=== PATIENT | male | born 1975 | race Caucasian/White ===

== ENCOUNTER 2021-01-24 22:37 | Inpatient (IN) | payer OTHER ==
[~2021-01-24] VITALS: Ht 188 cm; Wt 140.9 kg
[~2021-01-24 22:37] MED LIST: CIPRO500 MG PO; FLAGYL500 MG PO; NORCO 7.5-3251 EACH GT; ZOFRAN4 MG PO; ZYRTEC10 MG PO
[2021-01-24 23:12] LABS: BASOPHILS 0.2 % (0-2); EOSINOPHILS 1.2 % (0-7); HEMATOCRIT 45.9 % (42.0-54.0); HEMOGLOBIN 15.5 g/dL (13.5-17.5); IMMATURE GRANULOCYTES 0.3 % (0-5); LYMPHOCYTE ABS# 3.47 10x3/uL (1.32-3.57); LYMPHOCYTES 24.2 % (15-50); MCH 28.8 pg (26.0-34.0); MCHC 33.8 g/dL (31.0-37.0); MCV 85.3 fL (80.0-100.0); MEAN PLATELET VOLUME 10.7 fL (7.4-10.4); MONOCYTES 9.6 % (2-11); NEUTROPHIL ABS# 9.26 10x3/uL (1.78-5.38); NEUTROPHILS 64.5 % (40-80); PLATELET COUNT 300 10x3/uL (130-400); RBC 5.38 10x6/uL (4.20-6.10); RDW 12.6 % (11.5-14.5); WBC 14.4 10x3/uL (4.8-10.8)
[2021-01-24 23:22] LABS: CALC OSMOLALITY 284 mosm/kg (275-300); CALCIUM 8.7 mg/dL (8.5-10.1); CHLORIDE - SERUM 105 mmol/L (98-107); POTASSIUM - SERUM 3.8 mmol/L (3.5-5.1); SODIUM 141 mmol/L (136-145); UREA NITROGEN 15 mg/dL (7-18); eGFR NON AFRICAN AMERICAN 85 mL/min (90-120)
[2021-01-24 23:27] LABS: GLUCOSE 147 mg/dL (74-106)
[2021-01-24 23:28] LABS: ALBUMIN 3.5 g/dL (3.4-5.0); ALKALINE PHOSPHATASE 95 U/L (30-120); ALT (SGPT) 26 U/L (10-68); BILIRUBIN - TOTAL 0.61 mg/dL (0.2-1.3); PROTEIN - SERUM 7.3 g/dL (6.4-8.2)
--- NOTE | 2021-01-24 23:50 | NUR ---
PT LEFT ED VIA STRETCHER FOR CT.
[2021-01-25] VITALS (7 sets, daily range): BP systolic 111–134; BP diastolic 65–86; Ht 188 cm; Wt 140.9 kg
--- NOTE | 2021-01-25 09:07 | NUR ---
PT REQUEST 2MG OF MORPHINE
--- NOTE | 2021-01-25 11:35 | NUR ---
RESTING IN BED, NO DISTRESS NOTED, USING URINAL, IV PER LFA, NO REDDNESS AT SITE
--- NOTE | 2021-01-26 01:30 | NUR ---
A&O X 4. IV TO LEFT WRIST INFILTRATED. DCd WITH CATH INTACT. 20G SITED TO LEFT FOREARM, 1ST ATTEMPT, PATENT. TOLERATED WELL. DENIES PAIN/NAUSEA. CPOC.
--- NOTE | 2021-01-26 03:55 | NUR ---
I have reviewed this patient and I concur with the Shift Assessment completed by the Licensed Practical Nurse today this shift.
[2021-01-26 05:54] VITALS: BP 117/76
[2021-01-26 06:20] LABS: BASOPHILS 0.2 % (0-2); EOSINOPHILS 2.7 % (0-7); HEMATOCRIT 42.9 % (42.0-54.0); HEMOGLOBIN 14.4 g/dL (13.5-17.5); IMMATURE GRANULOCYTES 0.3 % (0-5); LYMPHOCYTE ABS# 3.06 10x3/uL (1.32-3.57); MCH 28.6 pg (26.0-34.0); MCHC 33.6 g/dL (31.0-37.0); MCV 85.3 fL (80.0-100.0); MEAN PLATELET VOLUME 10.9 fL (7.4-10.4); MONOCYTES 8.5 % (2-11); NEUTROPHILS 60.3 % (40-80); PLATELET COUNT 300 10x3/uL (130-400); RBC 5.03 10x6/uL (4.20-6.10); RDW 12.6 % (11.5-14.5); WBC 10.9 10x3/uL (4.8-10.8)
[2021-01-26 06:25] LABS: CALC OSMOLALITY 277 mosm/kg (275-300); CALCIUM 8.9 mg/dL (8.5-10.1); CARBON DIOXIDE 26.6 mmol/L (21.0-32.0); CHLORIDE - SERUM 103 mmol/L (98-107); CREATININE - SERUM 0.8 mg/dL (0.6-1.3); GLUCOSE 114 mg/dL (74-106); SODIUM 139 mmol/L (136-145); eGFR NON AFRICAN AMERICAN > 90 mL/min (90-120)
[2021-01-26 06:26] LABS: UREA NITROGEN 11 mg/dL (7-18)
--- NOTE | 2021-01-26 07:43 | NUR ---
resting in bed, no distress noted, sl in place, cont to monitor pain
[2021-01-26 09:42] VITALS: BP 120/78
[2021-01-26] MEDS ORDERED: FLAGYL500 MG PO (10:03)
[2021-01-26] MEDS ORDERED: CIPRO500 MG PO (10:03)
--- NOTE | 2021-01-26 10:50 | NUR ---
OFFERED PT REFERRAL TO TOBACCO QUITLINE. DECLINED.
--- NOTE | 2021-01-26 11:03 | NUR ---
IV REMOVED, TIP INTACT, REVIEWED DC ORDERS WITH PT, VOICED NO CONCERNS, WALKED FROM UNIT
== END 2021-01-26 11:05 | disposition home or self-care (01) | DRG 392 ==
LOC: D.ER 22:37 → D.MS 01-25 00:55
PROVIDERS: Emergency Medicine; ADMIT Family Medicine; ATTEND Family Medicine
DX: K57.92 Diverticulitis of intestine, part unspecified, without perforation or abscess without bleeding (principal); Z72.0 Tobacco use